=== PATIENT | female | born 1990 | race Caucasian/White ===

== ENCOUNTER → 2019-06-22 19:49 | Observation (INO) ==
[2019-06-22 19:01] LABS: Bilirubin,Urine Negative (Negative); Blood,Urine Negative (Negative); Clarity,Urine Clear (Clear); Color,Urine Yellow (Yellow); Glucose,Urine (UA) Normal (Normal); Ketones,Urine Negative (Negative); Leukocyte Esterase,Urine Negative (Negative); Nitrite,Urine Negative (Negative); Protein,Urine Negative (Neg-Trace); Specific Gravity,Urine 1.012 (1.010-1.025); Urobilinogen,Urine Normal (Normal)
[2019-06-22 19:03] LABS: Basophils # 0.1 K/mcL (0.0-0.2); Basophils % 0.5 %; Eosinophils # 0.1 K/mcL (0.0-0.6); Eosinophils % 1.1 %; Hematocrit 35.7 % (35.3-44.9); Hemoglobin 11.9 g/dL (11.5-15.4); Immature Granulocytes % 0.5 % (0-4); Lymphocytes # 3.1 K/mcL (0.6-4.6); Lymphocytes % 24.1 %; Mean Corpuscular HGB Conc 33.3 g/dL (31.6-35.5); Mean Corpuscular Hemoglobin 30.1 pg (28.0-33.3); Mean Corpuscular Volume 90.2 fL (83.0-100.0); Mean Platelet Volume 8.6 fL (9.4-12.4); Monocytes # 0.7 K/mcL (0.0-1.3); Monocytes % 5.2 %; Neutrophils # 8.7 K/mcL (1.6-8.9); Platelet Count 300 K/mcL (140-400); Red Blood Count 3.96 M/mcL (3.82-4.97); Red Cell Distribution Width 13.2 % (11.5-14.5); Segmented Neutrophils % 68.6 %; White Blood Count 12.6 K/mcL (4.3-11.1)
[2019-06-22 19:12] LABS: Amphetamine Screen,Urine Negative ng/mL (Cutoff=1000); Barbiturate Screen,Urine Negative ng/mL (Cutoff=200); Benzodiazepines Screen,Urine Negative ng/mL (Cutoff=200); Cannabinoid Screen,Urine Negative ng/mL (Cutoff = 50); Cocaine Screen,Urine Negative ng/mL (Cutoff= 300); Creatinine,Urine 68 mg/dL; Opiate Screen,Urine Negative ng/mL (Cutoff=300); Phencyclidine Screen,Urine Negative ng/mL (Cutoff=25)
[2019-06-22 19:22] LABS: Alanine Aminotransferase 18 Units/L (7-52); Aspartate Amino Transferase 19 Units/L (13-39); BUN/Creatinine Ratio 14 (6-26); Blood Urea Nitrogen 9 mg/dL (6-20); Lactate Dehydrogenase 136 Units/L (140-271); eGFR For African Americans > 60 (> 60); eGFR For Non-African Americans > 60 (> 60)
--- NOTE | 2019-06-22 19:39 | Discharge Summary ---
Date of Encounter: 06/22/19 Time of Encounter: 19:38 - Discharge Diagnosis (1) 38 weeks gestation of Priority: Primary Status: Acute Comments: Patient is scheduled for induction of labor on Monday Labor parameters discussed for when to return Discharge home (2) Uterine contractions during Priority: Secondary Status: Acute Comments: Patient was monitored for 2 hours with no cervical change and is requesting to be discharged home - Discharge Medications Prescriptions: No Action Pnv Plus Multivit Tab 1 tab PO DAILY Home Medications: Pnv Plus Multivit Tab 1 tab PO DAILY 06/22/19 [History] Allergies/Adverse Reactions: Allergy/AdvReac Type Severity Reaction Status Date / Time No Known Allergies Allergy Verified 11/08/15 11:58 Data Procedures and tests throughout hospitalization: Laboratory Tests 06/22/19 06/22/19 06/22/19 18:20 18:20 18:20 WBC 12.6 H RBC 3.96 Hgb 11.9 Hct 35.7 MCV 90.2 MCH 30.1 MCHC 33.3 RDW 13.2 Plt Count 300 MPV 8.6 L Immature Gran % 0.5 Seg Neutrophils % 68.6 Lymphocytes % 24.1 Monocytes % 5.2 Eosinophils % 1.1 Basophils % 0.5 Neutrophils # 8.7 Lymphocytes # 3.1 Monocytes # 0.7 Eosinophils # 0.1 Basophils # 0.1 BUN 9 Creatinine 0.63 Est GFR ( Amer) > 60 Est GFR (Non-Af Amer) > 60 BUN/Creatinine Ratio 14 Uric Acid 5.0 AST 19 ALT 18 Lactate Dehydrogenase 136 L Urine Color Yellow Urine Clarity Clear Urine pH 7.0 Ur Specific [place] 1.012 Urine Protein Negative Urine Glucose (UA) Normal Urine Ketones Negative Urine Blood Negative Urine Nitrite Negative Urine Bilirubin Negative Urine Urobilinogen Normal Ur Leukocyte Esterase Negative Ur Culture Indicated? NO Urine Creatinine Protein/Creatinin Ratio Urine Total Protein Urine Opiates Screen Ur Buprenorphine Scrn Ur Barbiturates Screen Ur Phencyclidine Scrn Ur Amphetamines Screen U Benzodiazepines Scrn Urine Cocaine Screen U Marijuana (THC) Screen Ur Drug Screen Interp 06/22/19 18:20 WBC RBC Hgb Hct MCV MCH MCHC RDW Plt Count MPV Immature Gran % Seg Neutrophils % Lymphocytes % Monocytes % Eosinophils % Basophils % Neutrophils # Lymphocytes # Monocytes # Eosinophils # Basophils # BUN Creatinine Est GFR ( Amer) Est GFR (Non-Af Amer) BUN/Creatinine Ratio Uric Acid AST ALT Lactate Dehydrogenase Urine Color Urine Clarity Urine pH Ur Specific [place] Urine Protein Urine Glucose (UA) Urine Ketones Urine Blood Urine Nitrite Urine Bilirubin Urine Urobilinogen Ur Leukocyte Esterase Ur Culture Indicated? Urine Creatinine 68 Protein/Creatinin Ratio 0.10 Urine Total Protein 7 Urine Opiates Screen Negative Ur Buprenorphine Scrn Negative Ur Barbiturates Screen Negative Ur Phencyclidine Scrn Negative Ur Amphetamines Screen Negative U Benzodiazepines Scrn Negative Urine Cocaine Screen Negative U Marijuana (THC) Screen Negative Ur Drug Screen Interp See Below Labs on day of discharge: Labs from last 24 hours 06/22/19 06/22/19 06/22/19 18:20 18:20 18:20 WBC RBC Hgb Hct MCV MCH MCHC RDW Plt Count MPV Immature Gran % Seg Neutrophils % Lymphocytes % Monocytes % Eosinophils % Basophils % Neutrophils # Lymphocytes # Monocytes # Eosinophils # Basophils # BUN 9 Creatinine 0.63 Est GFR ( Amer) > 60 Est GFR (Non-Af Amer) > 60 BUN/Creatinine Ratio 14 Uric Acid 5.0 AST 19 ALT 18 Lactate Dehydrogenase 136 L Urine Color Yellow Urine Clarity Clear Urine pH 7.0 Ur Specific [place] 1.012 Urine Protein Negative Urine Glucose (UA) Normal Urine Ketones Negative Urine Blood Negative Urine Nitrite Negative Urine Bilirubin Negative Urine Urobilinogen Normal Ur Leukocyte Esterase Negative Ur Culture Indicated? NO Urine Creatinine 68 Protein/Creatinin Ratio 0.10 Urine Total Protein 7 Urine Opiates Screen Negative Ur Buprenorphine Scrn Negative Ur Barbiturates Screen Negative Ur Phencyclidine Scrn Negative Ur Amphetamines Screen Negative U Benzodiazepines Scrn Negative Urine Cocaine Screen Negative U Marijuana (THC) Screen Negative Ur Drug Screen Interp See Below 06/22/19 18:20 WBC 12.6 H RBC 3.96 Hgb 11.9 Hct 35.7 MCV 90.2 MCH 30.1 MCHC 33.3 RDW 13.2 Plt Count 300 MPV 8.6 L Immature Gran % 0.5 Seg Neutrophils % 68.6 Lymphocytes % 24.1 Monocytes % 5.2 Eosinophils % 1.1 Basophils % 0.5 Neutrophils # 8.7 Lymphocytes # 3.1 Monocytes # 0.7 Eosinophils # 0.1 Basophils # 0.1 BUN Creatinine Est GFR ( Amer) Est GFR (Non-Af Amer) BUN/Creatinine Ratio Uric Acid AST ALT Lactate Dehydrogenase Urine Color Urine Clarity Urine pH Ur Specific [place] Urine Protein Urine Glucose (UA) Urine Ketones Urine Blood Urine Nitrite Urine Bilirubin Urine Urobilinogen Ur Leukocyte Esterase Ur Culture Indicated? Urine Creatinine Protein/Creatinin Ratio Urine Total Protein Urine Opiates Screen Ur Buprenorphine Scrn Ur Barbiturates Screen Ur Phencyclidine Scrn Ur Amphetamines Screen U Benzodiazepines Scrn Urine Cocaine Screen U Marijuana (THC) Screen Ur Drug Screen Interp Date of admission: 06/22/19 17:25 Discharging clinician: Mary Cee Anticipated date of discharge: 06/22/19 - Patient Status Disposition: Home, Self-Care Condition: Good Functional capacity at discharge: independent ambulation Overall status at discharge: patient is progressing back to baseline - Discharge Instructions Follow Up With: Carmelita Nickerson DO [Partnered Physician] - - Diet and Activity Activity: increase activity as tolerated Diet: regular diet 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 She states the contractions have been going on all week and have been very irregular anywhere from 15-20 minutes apart. She reports the headache started today along with nausea. She was given a 1 L LR bolus and PIH labs were drawn she was monitored for 2 hours with no cervical change and was given the option to stay versus going home and decided to go home. She is discharged home in stable condition with follow-up instructions. Time Attestation: Total time spent providing and/or coordinating discharge services: Time Spent: Less than 30 minutes Exam - Constitutional General appearance IM: A&O X 3, pleasant, no acute distress, answers questions appropriately - Respiratory Respiratory exam: Present: CTAB - Cardiovascular Cardiovascular exam IM: Present: RRR, +S1, +S2 - GI/Abdominal GI/Abdominal exam IM: normal bowel sounds, no peritoneal signs - Rectal Rectal exam: deferred - Uterine Tone: Firm - Extremities Exam Extremities exam IM: Present: full ROM, normal capillary refill, normal inspection, radial pulses palpable and symmetrical - Neurological Exam Neurological exam: alert, CN II-XII intact, normal gait, oriented X3, reflexes normal, no focal deficits, strengths equal and symetr throughout - VTE Reasons for not Prescribing Prophylaxis: Treatment not Indicated - Low risk for VTE
[~2019-06-22 19:49] MED LIST: Ringers Solution, Lactated 1,000 ML IVC SCH
== END | disposition home or self-care (01) ==
LOC: 1NENULAB
PROVIDERS: ADMIT Obstetrics & Gynecology; ATTEND Obstetrics & Gynecology

== ENCOUNTER 2019-06-26 10:00 | Inpatient (IN) ==
[2019-06-26] MEDS ORDERED: Ondansetron 4 MG/2 ML VIAL IVP PRN (19:02)
[2019-06-26] MEDS ORDERED: Metoclopramide 10 MG/2 ML VIAL IVP PRN (19:02)
[2019-06-26] MEDS ORDERED: Famotidine 20 MG/2 ML VIAL IVP PRN (19:02)
[2019-06-26] MEDS ORDERED: Naloxone 0.4 MG/ML INJ IVP PRN (19:02)
[2019-06-26] MEDS ORDERED: *HR* Nalbuphine 10 MG/ML AMPUL IVP PRN (19:02)
[2019-06-26] MEDS ORDERED: Ringers Solution, Lactated 1,000 ML IVC SCH (19:15)
[2019-06-26] MEDS ORDERED: Oxytocin 20 units/ LR 1000 mL 20 UNIT/1,000 ML BAG IVC SCH (19:15)
[2019-06-26 19:47] LABS: Amphetamine Screen,Urine Negative ng/mL (Cutoff=1000); Barbiturate Screen,Urine Negative ng/mL (Cutoff=200); Benzodiazepines Screen,Urine Negative ng/mL (Cutoff=200); Cannabinoid Screen,Urine Negative ng/mL (Cutoff = 50); Cocaine Screen,Urine Negative ng/mL (Cutoff= 300); Opiate Screen,Urine Negative ng/mL (Cutoff=300); Phencyclidine Screen,Urine Negative ng/mL (Cutoff=25)
[2019-06-26] MEDS ORDERED: Lidocaine 1% 20 ML MDV INFILT PRN (20:14)
[2019-06-26 20:27] LABS: Basophils # 0.1 K/mcL (0.0-0.2); Basophils % 0.4 %; Eosinophils # 0.1 K/mcL (0.0-0.6); Eosinophils % 0.4 %; Hematocrit 36.9 % (35.3-44.9); Hemoglobin 12.4 g/dL (11.5-15.4); Immature Granulocytes % 0.8 % (0-4); Lymphocytes # 3.1 K/mcL (0.6-4.6); Lymphocytes % 22.8 %; Mean Corpuscular HGB Conc 33.6 g/dL (31.6-35.5); Mean Corpuscular Hemoglobin 30.3 pg (28.0-33.3); Mean Corpuscular Volume 90.2 fL (83.0-100.0); Mean Platelet Volume 8.6 fL (9.4-12.4); Monocytes # 0.8 K/mcL (0.0-1.3); Monocytes % 5.8 %; Neutrophils # 9.3 K/mcL (1.6-8.9); Platelet Count 330 K/mcL (140-400); Red Blood Count 4.09 M/mcL (3.82-4.97); Red Cell Distribution Width 13.2 % (11.5-14.5); Segmented Neutrophils % 69.8 %; White Blood Count 13.4 K/mcL (4.3-11.1)
--- NOTE | 2019-06-26 21:23 | OB/GYN History & Physical ---
Date of Encounter: 06/26/19 Time of Encounter: 20:53 Assessment and Plan (1) Encounter for elective induction of labor Current visit: Yes Status: Acute Pitocin induction/augmentation as ordered with EFM in anticipation of a vaginal delivery (2) 39 weeks gestation of Current visit: Yes Status: Acute (3) Uterine contractions during Current visit: No Status: Acute History of Present Illness Chief complaint: induction of labor at 39 weeks HPI: Ms. Sood is a 29 year old female G 3 P 2-0-0-2 at 39 0/7 weeks presents to labor and delivery for induction of labor. She states she has continued to contract since her appointment this afternoon. Her has been uncomplicated. Past Med Surg Social Fam HX - Past Medical History Source: patient Medical history: non-contributory Psychiatric history: no psych history - Past Surgical History Surgical History: appendectomy Additional surgical history: 2013 Appendectomy - Social History Smoking Status: Never smoker Smokeless Tobacco Status: No Alcohol use: none Drug use: none - Family History Father Adopted: No Family Member Ethnicity: Non- Living Status: Still Living Hx Family Cardiac Disorders: Yes (HTN) Hx Family Respiratory Disorders: No Hx Family Cancer: Yes (CA to liver and small intestines) Hx Family GI Disorders: No Hx Family Endocrine Disorder: No Hx Family Neuromuscular Disorders: No Hx Family Neurologic Disorders: No Hx Family HEENT Disorders: No Hx Family Autoimmune Disorders: No Obstetrical History - Pregnancies : 3 Para: 2 Term: 2 : 0 Ab's: 0 Livin Medications and Allergies Pnv Plus Multivit Tab 1 tab PO DAILY 06/22/19 [History] Allergy/AdvReac Type Severity Reaction Status Date / Time No Known Allergies Allergy Verified 11/08/15 11:58 Review of System OB All systems PM: reviewed and no additional remarkable complaints except as stated - Constitutional Constitutional ROS IM: fatigue, no chills, no fever(s) - Menstruation Menstruation: amenorrhea Exam - Constitutional Constitutional: well developed, well nourished, no acute distress, average body habitus - HEENT HEENT: EOMI - Lungs Respiratory exam: CTAB - Cardiovascular Cardiovascular exam: RRR - Abdomen Abdomen: Present: bowel sounds normal, gravid, non tender - Vulva Vulva: bilateral: normal - Cervix Dilation: 3 Effacement: 50 Station: -3 Results Result Diagrams: 06/26/19 19:00 Abnormal lab results WBC 13.4 K/mcL (4.3-11.1) H 06/26/19 19:00 MPV 8.6 fL (9.4-12.4) L 06/26/19 19:00 Neutrophils # 9.3 K/mcL (1.6-8.9) H 06/26/19 19:00 All other labs normal. - VTE Reasons for not Prescribing Prophylaxis: Treatment not Indicated - Low risk for VTE
--- NOTE | 2019-06-26 22:07 | OB Labor Progress Note ---
Date of Encounter: 06/26/19 Time of Encounter: 22:01 Labor Progress Note - Subjective Subjective: Patient is more uncomfortable. She denies any concerns at this time. - Cervix Cervix: 5/50/-2, cephalic - Heart Tones Heart Tones: category 1 FHR tracing with 130 baseline. - [place]: q 2-3 minutes - Interventions Interventions: AROM with clear fluid. Continue Pitocin induction with EFM in anticipation of a vaginal delivery
[2019-06-26] MEDS ORDERED: *HR* FentaNYL (PF) 100 MCG/2 ML VIAL EP ONE (23:32)
--- NOTE | 2019-06-26 23:35 | Anesthesia Evaluation PreOp ---
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: Denies Any Significant HX Other Medical History: GERD Anesthesia History: No Prior Anesthetic Complications, Past Anesthesia (mignon) : Yes Test: Positive Alcohol Use: none Drug use: none Medications and Allergies Pnv Plus Multivit Tab 1 tab PO DAILY 06/22/19 [History] Allergy/AdvReac Type Severity Reaction Status Date / Time No Known Allergies Allergy Verified 11/08/15 11:58 - Meds/Allergy Pre-op Review Medications Reviewed: Yes Allergies Reviewed: Yes Beta Blockers on Current Med List: No Anesthesia Results - Labs 06/26/19 19:00 Anesthesia Exam Height: 5'1" Weight: 71 NPO (# of Hours): 3 Pain Scale: 8 Pain Scale Used: Numeric (1 - 10) - HEENT Pupil (Motor): Pupils equal Mallampati: II Teeth: Normal Oral Opening: Greater than 3 - STUCCO WORKER LOC: Oriented STUCCO WORKER Motor: Normal RUE, Normal LUE, Normal RLE, Normal LLE, Normal Face STUCCO WORKER Sensory: Normal: RUE, LUE, RLE, LLE, Face - Cardiac Rhythm: Regular Murmur: None - Pulmonary Breath Sounds: bilateral Clear Respiratory Effort: Symmetrical Anesthesia Assess/Plan ASA Score: 2 Level of consciousness: Cooperative Anesthetic Plan: Epidural (riskd discussed questions answered, consented) Autologous Blood: No Monitoring Plan: Standard Monitors Recovery Plan: Other
[2019-06-26] MEDS ORDERED: *HR* FentaNYL (PF) 100 MCG/2 ML VIAL ONE (23:36)
[2019-06-26] MEDS ORDERED: Epidural Premix (fent/bupiv) 110 ML EP SCH (23:45)
--- NOTE | 2019-06-26 23:57 | Anesthesia Procedures ---
Date of Encounter: 06/26/19 Time of Encounter: 23:56 Procedures: Anesthesia - Epidural/Spinal Patient ID/Chart reviewed: Yes Patient examined: Yes OB Eval: Gestational age: 39 OB Eval: : 3 OB Eval: Hx Para: 2 OB Eval: Dilated at (cm): 6 OB Eval: Contractions: Non-stressed pattern Consent Obtained: Yes Supplemental Oxygen: None/Room Air Site Prep: Aseptic Technique, 0.5% Chlorhexidine/Alcohol Patient position: upright Local Anesthetic: Lidocaine 1% Amount of Local Anesthetic used: 3 Touhy Needle Gauge: 18 Touhy Needle Depth (cm): 5 Catheter Depth at Skin (cm): 15 Test Dose (1.5% Lido + Epi): Volume given (mls): 3 Test Dose Result: Negative Loading Dose: Fentanyl (mcg): 100 Loading Dose Administered: Thru Touhy Needle Infusion Med: 0.125% Bupivacaine w/ 2 mcg/ml Fentanyl Infusion Rate (mls/hr): 15 (pcea 5cc q30") Catheter Secured in Place: Tegaderm Interspace Used: L2-L3 Loss of Resistance (JORDAN): Yes Blood: No CSF: No Paresthesia: No Procedure: aseptic, tolerate dwell, VSS, effective Vitals + FHT's: 121/80 88 16 fht 144
--- NOTE | 2019-06-27 00:42 | OB/GYN Procedure Note ---
Delivery - Delivery Date: 06/27/19 Provider: Carmelita Nickerson Intrapartum events: none Delivery induction: AROM, oxytocin Delivery monitor: external FHT, external uterine Anesthesia: epidural Quantitated Blood Loss: 100 - Infant (s) Infant A Delivery Date: 06/27/19 Infant Delivery Time: 00:27 Presentation: vertex Position: JANELL Route of delivery: Gender: Male Viability: Viable Shoulder Dystocia: not encountered Specimens collected: cord blood Placenta: spontaneous Cord: nuchal cord, 3 umbilical vessels, delivered through nuchal - Repair Episiotomy: none - Complications Delivery complications: none Delivery comments: Called to room with patient complete and +2 station. Under maternal effort she delivered a viable male with weight and Apgars pending at the time of dictation. Infant delivered in JANELL presentation. Following delivery of the head there was a loose nuchal cord noted that she delivered through. There is no shoulder dystocia encountered. Infant was placed on mom's abdomen and cord was allowed to cease pulsations. Cord was then double clamped and cut with assistance from the father. Cord blood was collected. Placenta delivered spontaneously, complete, and intact with a three-vessel cord. There were no perineal, vaginal, or labial lacerations noted on exam. Mother and infant are recovering in the LDR in stable condition - Disposition Mom disposition: stable in LDR [place] disposition: stable in LDR
[2019-06-27] MEDS ORDERED: Oxytocin 20 units/ LR 1000 mL 20 UNIT/1,000 ML BAG IVC SCH (00:46)
[2019-06-27] MEDS ORDERED: Oxytocin 20 units/ LR 1000 mL 20 UNIT/1,000 ML BAG IVC ONE (00:46)
[2019-06-27] MEDS ORDERED: Acetaminophen 325 MG TABLET PO PRN (00:46)
[2019-06-27] MEDS ORDERED: Benzocaine/Menthol 56 GM AEROSOL SPRAY TP PRN (00:46)
[2019-06-27] MEDS: Ibuprofen 600 MG TABLET PO PRN ×4 (01:04→21:00)
[2019-06-27] MEDS: Prenatal Vit/FA 1 EACH TABLET PO SCH (08:23)
--- NOTE | 2019-06-28 06:40 | Discharge Summary ---
Date of Encounter: 06/28/19 Time of Encounter: 06:38 - Discharge Diagnosis (1) Breast feeding status of mother Priority: Secondary Status: Acute Comments: support prn (2) Vaginal delivery Priority: Primary Status: Acute Comments: Continue routine care discharge home today follow up with Dr. Nickerson in 4-6 weeks - Discharge Medications Prescriptions: New Acetaminophen [Tylenol] 650 mg PO Q6HR PRN tablet PRN Reason: Mild Pain Ibuprofen [Motrin] 600 mg PO Q6HR PRN tablet PRN Reason: Cramping Benzocaine/Menthol [place] [Dermoplast [place]] 1 appl TP QID PRN aerosol PRN Reason: See Comments Continued Pnv Plus Multivit Tab 1 tab PO DAILY Home Medications: Pnv Plus Multivit Tab 1 tab PO DAILY 06/22/19 [History] Acetaminophen [Tylenol] 650 mg PO Q6HR PRN tablet 06/28/19 [Rx] Benzocaine/Menthol [place] [Dermoplast [place]] 1 appl TP QID PRN aerosol 06/28/19 [Rx] Ibuprofen [Motrin] 600 mg PO Q6HR PRN tablet 06/28/19 [Rx] Allergies/Adverse Reactions: Allergy/AdvReac Type Severity Reaction Status Date / Time No Known Allergies Allergy Verified 11/08/15 11:58 Data Procedures and tests throughout hospitalization: Laboratory Tests 06/26/19 06/26/19 19:00 19:00 WBC 13.4 H RBC 4.09 Hgb 12.4 Hct 36.9 MCV 90.2 MCH 30.3 MCHC 33.6 RDW 13.2 Plt Count 330 MPV 8.6 L Immature Gran % 0.8 Seg Neutrophils % 69.8 Lymphocytes % 22.8 Monocytes % 5.8 Eosinophils % 0.4 Basophils % 0.4 Neutrophils # 9.3 H Lymphocytes # 3.1 Monocytes # 0.8 Eosinophils # 0.1 Basophils # 0.1 Urine Opiates Screen Negative Ur Buprenorphine Scrn Negative Ur Barbiturates Screen Negative Ur Phencyclidine Scrn Negative Ur Amphetamines Screen Negative U Benzodiazepines Scrn Negative Urine Cocaine Screen Negative U Marijuana (THC) Screen Negative Ur Drug Screen Interp See Below Date of admission: 06/26/19 18:19 Primary care physician: Thanh Currie Consults: 06/27/19 00:46 Consult to Bioinformatics Technician [CONS] Routine Comment: Vaginal delivery, consult needed Discharging clinician: Kanwal Veliz Anticipated date of discharge: 06/28/19 - Patient Status Disposition: Home, Self-Care Condition: Good Functional capacity at discharge: independent ambulation - Discharge Instructions Follow Up With: Thanh Currie MD [Primary Care Provider] - Carmelita Nickerson DO [Partnered Physician] - - Diet and Activity Activity: increase activity as tolerated Diet: regular diet Hospital Course Reason for admission: induction of labor Delivery: Episiotomy: none Laceration: none Other procedures: none complications: none Discharge diagnosis: IUP at term delivered [place] baby: male (breast feeding) Time Attestation: Total time spent providing and/or coordinating discharge services: Time Spent: Less than 30 minutes Exam - Constitutional Vitals: Temp Pulse Resp BP Pulse Ox 98.9 F 64 14 122/81 97 06/27/19 20:05 06/27/19 20:05 06/27/19 20:05 06/27/19 20:05 06/27/19 20:05 General appearance IM: A&O X 3, pleasant, answers questions appropriately - Respiratory Respiratory exam: Present: CTAB - Cardiovascular Cardiovascular exam IM: Present: RRR, +S1, +S2 - GI/Abdominal GI/Abdominal exam IM: normal bowel sounds - Uterine Tone: Firm Uterus Position: 1 Finger Below Umbilicus, Midline - Extremities Exam Extremities exam IM: Present: full ROM, normal capillary refill, normal inspection - Neurological Exam Neurological exam: alert, oriented X3, reflexes normal
[2019-06-28 07:58] VITALS: BP 109/75
[2019-06-28] MEDS: Prenatal Vit/FA 1 EACH TABLET PO SCH (09:14)
== END 2019-06-28 12:46 | disposition home or self-care (01) | DRG 807 ==
LOC: 1NENULAB 18:19 → 1NENUOBS 06-27 03:19
PROVIDERS: ADMIT Obstetrics & Gynecology; ATTEND Obstetrics & Gynecology

== ENCOUNTER 2019-11-17 08:47 | Observation (INO) ==
[2019-11-17] MEDS ORDERED: 0.9 % Sodium Chloride 1,000 ML IVC ONE (09:02)
[2019-11-17] MEDS ORDERED: Ketorolac 15 MG/ML VIAL IVP ONE (09:02)
[2019-11-17] MEDS ORDERED: *HR* FentaNYL (PF) 100 MCG/2 ML VIAL IVP ONE (09:02)
[2019-11-17] MEDS ORDERED: Ondansetron 4 MG/2 ML VIAL IVP ONE (09:29)
[2019-11-17 09:31] LABS: Basophils # 0.1 K/mcL (0.0-0.2); Basophils % 0.3 %; Eosinophils # 0.1 K/mcL (0.0-0.6); Eosinophils % 0.4 %; Hematocrit 46.6 % (35.3-44.9); Hemoglobin 15.4 g/dL (11.5-15.4); Immature Granulocytes % 0.4 % (0-4); Lymphocytes % 11.7 %; Mean Corpuscular Hemoglobin 29.3 pg (28.0-33.3); Mean Corpuscular Volume 88.8 fL (83.0-100.0); Mean Platelet Volume 8.2 fL (9.4-12.4); Monocytes # 0.7 K/mcL (0.0-1.3); Monocytes % 4.2 %; Neutrophils # 14.2 K/mcL (1.6-8.9); Platelet Count 413 K/mcL (140-400); Red Blood Count 5.25 M/mcL (3.82-4.97); Red Cell Distribution Width 12.5 % (11.5-14.5); White Blood Count 17.1 K/mcL (4.3-11.1)
[2019-11-17 09:39] LABS: Bilirubin,Urine Negative (Negative); Blood,Urine Negative (Negative); Clarity,Urine Clear (Clear); Color,Urine Yellow (Yellow); Glucose,Urine (UA) Normal (Normal); Ketones,Urine Negative (Negative); Leukocyte Esterase,Urine Negative (Negative); Nitrite,Urine Negative (Negative); Protein,Urine Negative (Neg-Trace); Urobilinogen,Urine Normal (Normal)
[2019-11-17] MEDS ORDERED: *HR* HYDROmorphone (PF) 1 MG/ML SYRINGE IVP ONE (09:44)
[2019-11-17 09:48] LABS: Alanine Aminotransferase 14 Units/L (7-52); Albumin 4.8 g/dL (3.5-5.7); Albumin/Globulin Ratio 1.6 (1.1-2.2); Alkaline Phosphatase 79 Units/L (34-104); Aspartate Amino Transferase 18 Units/L (13-39); BUN/Creatinine Ratio 17 (6-26); Bilirubin,Direct 0.2 mg/dL (0.0-0.2); Bilirubin,Total 1.2 mg/dL (0.3-1.0); Blood Urea Nitrogen 13 mg/dL (6-20); Calcium 9.9 mg/dL (8.6-10.3); Carbon Dioxide 24 mEq/L (23-29); Chloride 104 mEq/L (98-107); Glucose 97 mg/dL (70-105); Osmolality,Calculated 286 (280-300); Potassium 3.7 mEq/L (3.5-5.1); Sodium 138 mEq/L (136-145); Total Protein 7.8 g/dL (6.4-8.9); eGFR For African Americans > 60 (> 60); eGFR For Non-African Americans > 60 (> 60)
[2019-11-17 09:56] LABS: INR 1.1
[2019-11-17] MEDS ORDERED: Piperacillin/Tazobactam 3.375 GM in 0.9 % Sodium Chloride Mini Bag 100 ML IVPB ONE (10:39)
[2019-11-17] MEDS ORDERED: Ondansetron 4 MG/2 ML VIAL IVP PRN (12:00)
[2019-11-17] MEDS: 0.9 % Sodium Chloride 1,000 ML IVC SCH (12:45)
[2019-11-17] MEDS: Piperacillin/Tazobactam 3.375 GM in 0.9 % Sodium Chloride Mini Bag 100 ML IVPB SCH (20:56)
[2019-11-18] MEDS: 0.9 % Sodium Chloride 1,000 ML IVC SCH ×3 (01:56→20:34)
[2019-11-18] MEDS: Piperacillin/Tazobactam 3.375 GM in 0.9 % Sodium Chloride Mini Bag 100 ML IVPB SCH ×3 (02:40→20:27)
[2019-11-18] MEDS ORDERED: Ondansetron 4 MG/2 ML VIAL ONE (14:21)
[2019-11-18] MEDS ORDERED: *HR* FentaNYL (PF) 100 MCG/2 ML VIAL ONE (14:21)
[2019-11-18] MEDS ORDERED: Lidocaine HCL 4 ML Topical Solution (Laryng-O-Jet Kit Sterile Pak) TP ONE (14:21)
[2019-11-18] MEDS ORDERED: Dexamethasone 4 MG/ML VIAL ONE (14:21)
[2019-11-18] MEDS ORDERED: *HR* Rocuronium Bromide 50 MG/5 ML VIAL ONE ×2 (14:21→16:31)
[2019-11-18] MEDS ORDERED: *HR* Midazolam HCl 2 MG/2 ML VIAL ONE (14:21)
[2019-11-18] MEDS ORDERED: Lidocaine -MPF 2% 2 ML VIAL ONE (14:21)
[2019-11-18] MEDS ORDERED: *HR* Propofol 200 MG/20 ML VIAL IVP ONE (14:22)
[2019-11-18] MEDS ORDERED: *HR* OxyCODONE Immed Rel 5 MG TABLET PO PRN (15:31)
[2019-11-18] MEDS ORDERED: Bupivacaine/EPI 1:200k 0.5%PF 30 ML VIAL ONE (15:44)
[2019-11-18] MEDS ORDERED: Isovue-300 50ML VIAL ONE (15:44)
[2019-11-18] MEDS ORDERED: Lacri-Lube 3.5 GM TUBE ONE (16:18)
[2019-11-18] MEDS ORDERED: Neostigmine Methylsulfate 3 MG/3 ML SYRINGE ONE (16:24)
[2019-11-18] MEDS ORDERED: Ketorolac 30 MG/ML VIAL ONE (16:24)
[2019-11-18] MEDS ORDERED: *HR* PHENYLEPHRINE 1,000 MCG/10 ML SYRINGE IVP ONE (16:31)
[2019-11-18] MEDS ORDERED: *HR* HYDROMORPHONE 2 MG/ML VIAL ONE (16:36)
[2019-11-18] MEDS: *HR* HYDROmorphone (PF) 1 MG/ML SYRINGE IVP PRN ×4 (17:28→17:50)
[2019-11-18] MEDS ORDERED: Ondansetron 4 MG/2 ML VIAL IVP PRN (18:32)
[2019-11-19] MEDS: Piperacillin/Tazobactam 3.375 GM in 0.9 % Sodium Chloride Mini Bag 100 ML IVPB SCH (04:16)
[2019-11-19 07:59] VITALS: BP 111/76
[2019-11-19] MEDS: 0.9 % Sodium Chloride 1,000 ML IVC SCH (08:33)
[2019-11-19] MEDS ORDERED: Ketorolac 30 MG/ML VIAL IVP ONE (08:33)
[2019-11-19] MEDS ORDERED: *HR* OxyCODONE/APAP 5/325 TABLET PO PRN (08:34)
[2019-11-19 09:04] LABS: Basophils % 0.3 %; Eosinophils % 0.1 %; Hematocrit 39.2 % (35.3-44.9); Immature Granulocytes % 0.4 % (0-4); Lymphocytes # 2.4 K/mcL (0.6-4.6); Lymphocytes % 17.4 %; Mean Corpuscular HGB Conc 34.2 g/dL (31.6-35.5); Mean Corpuscular Hemoglobin 29.1 pg (28.0-33.3); Mean Corpuscular Volume 85.2 fL (83.0-100.0); Mean Platelet Volume 8.1 fL (9.4-12.4); Monocytes # 0.8 K/mcL (0.0-1.3); Monocytes % 5.8 %; Neutrophils # 10.4 K/mcL (1.6-8.9); Platelet Count 369 K/mcL (140-400); Red Cell Distribution Width 12.6 % (11.5-14.5); White Blood Count 13.7 K/mcL (4.3-11.1)
[2019-11-19 09:06] LABS: Hemoglobin 13.4 g/dL (11.5-15.4)
== END 2019-11-19 11:03 | disposition home or self-care (01) ==
LOC: EMEROOARM 08:47 → 3BNU 08:47 → 2ANU 23:30
PROVIDERS: ADMIT Surgery; ATTEND Surgery